=== PATIENT | female | born 1950 | race Caucasian/White ===

== ENCOUNTER → 2016-08-02 | Outpatient (CLI) | payer OTHER | END | disposition home or self-care (01) | LOC: GMAL 11:31 | PROVIDERS: ATTEND Family Medicine | DX: M25.50 Pain in unspecified joint (principal) ==

== ENCOUNTER → 2017-02-22 | Outpatient (CLI) | payer OTHER ==
--- NOTE | 2017-02-22 16:14 | MAM ---
EXAM DESCRIPTION: 3D Screening BILATERAL : Digital Mammography. CLINICAL HISTORY: 66 years Female SCREENING . No complaints. No family history breast cancer. Postmenopausal. Currently on HRT. Prior left breast biopsy.. COMPARISON: 2-D digital screening bilateral study 11/24/2015 and 09/06/2012. Report from prior examination also reviewed. TECHNIQUE: Bilateral CC and MLO projection full-field images, 3-D tomosynthesis digital mammographic technique. Also bilateral synthesized CC/ MLO full-field images. CAD not utilized. FINDINGS: The breast parenchymal density pattern is: Scattered areas of fibroglandular density. No skin thickening or nipple retraction bilateral axillary lymph nodes. Bilateral intramammary lymph nodes. Bilateral solitary microcalcifications. No focal, stellate mass or density, focal asymmetry , and no suspicious microcalcifications bilaterally. Stable mammograms compared to prior study, taking into account differences in mammographic technique IMPRESSION: BI-RADS CATEGORY: 2 - BENIGN FINDINGS. FOLLOW UP: Routine digital bilateral screening, one year interval from February 2017. Written communication explaining the IMPRESSION and follow-up, will be mailed to the patient and referring health care provider. According to the [employer], yearly mammograms are recommended starting at age 40 and continuing as long as a woman is in good health. Any breast change noted on a breast self-exam should be reported promptly to the patient's healthcare provider. Breast MRI is recommended for women with an approximately 20-25% or greater lifetime risk of breast cancer, including women with a strong family history of breast or ovarian cancer and women who have been treated for Hodgkin's disease. A negative mammographic report should not delay tissue diagnosis in patients with significant clinical history or physical findings. Extremely dense breast tissue limits the sensitivity of digital mammography. Electronically signed by: Prem Dhaliwal MD 02/22/2017 4:13 PM [facility]
== END | disposition home or self-care (01) ==
LOC: MAMMO 08:30
PROVIDERS: ATTEND Family Medicine
DX: Z12.31 Encounter for screening mammogram for malignant neoplasm of breast (principal)

== ENCOUNTER → 2017-03-07 | Outpatient (CLI) | payer OTHER | END | disposition home or self-care (01) | LOC: GMAL 10:31 | PROVIDERS: ATTEND Family Medicine | DX: Z00.00 Encounter for general adult medical examination without abnormal findings (principal) ==

== ENCOUNTER → 2018-02-26 | Outpatient (CLI) | payer OTHER ==
--- NOTE | 2018-02-27 16:11 | MAM ---
EXAM DESCRIPTION: 3D Screening BILATERAL : Digital Mammography. CLINICAL HISTORY: 67 years Female SCREEN . No complaints. No personal or family history of breast cancer. Childbirth. Postmenopausal 24 years. Currently on HRT. Benign left breast biopsy. Lifetime risk of developing breast cancer (Tyrer-Cuzick model)(%): 6.2. COMPARISON: Bilateral screening digital breast tomosynthesis 02/22/2017. TECHNIQUE: Bilateral CC and MLO projection full-field images, digital tomosynthesis mammographic technique. Bilateral digital 2-D full-field MLO images. CAD not available for tomosynthesis or 2-D images. FINDINGS: The breast parenchymal density pattern is: Scattered areas of fibroglandular density. No skin thickening or nipple retraction. Bilateral axillary lymph nodes. Bilateral solitary microcalcifications. Stable anterior inferior intramammary lymph node left breast. No new focal, stellate mass or density, focal asymmetry , and no suspicious microcalcifications bilaterally. Stable mammograms compared to prior study. IMPRESSION: Benign exam. BIRAD CATEGORY: 2 BENIGN FINDINGS. RECOMMENDATIONS: FOLLOW UP: Routine digital bilateral mammographic screening, one year interval from February 2017. Written communication explaining the IMPRESSION and follow-up, will be mailed to the patient and referring health care provider. According to the [employer], yearly mammograms are recommended starting at age 40 and continuing as long as a woman is in good health. Any breast change noted on a breast self-exam should be reported promptly to the patient's healthcare provider. Breast MRI is recommended for women with an approximately 20-25% or greater lifetime risk of breast cancer, including women with a strong family history of breast or ovarian cancer and women who have been treated for Hodgkin's disease. A negative mammographic report should not delay tissue diagnosis in patients with significant clinical history or physical findings. Extremely dense breast tissue limits the sensitivity of digital mammography. Electronically signed by: Prem Dhaliwal MD 02/27/2018 4:09 PM CHEMICAL PRODUCTION TECHNICIAN
== END ==
LOC: MAMMO 07:47
PROVIDERS: ATTEND Obstetrics & Gynecology
DX: Z12.31 Encounter for screening mammogram for malignant neoplasm of breast (principal)

== ENCOUNTER → 2018-03-08 | Outpatient (CLI) | payer OTHER | LOC: GMAL 11:23 | PROVIDERS: ATTEND Family Medicine | DX: D51.3 Other dietary vitamin B12 deficiency anemia (principal); R53.83 Other fatigue; E55.9 Vitamin D deficiency, unspecified ==

== ENCOUNTER → 2019-03-12 | Outpatient (CLI) | payer OTHER ==
--- NOTE | 2019-03-15 17:54 | MAM ---
EXAM DESCRIPTION: 3D Screening BILATERAL : Digital Mammography. CLINICAL HISTORY: 68 years Female SCREENING . No complaints. No personal or family history of breast cancer. Menarche age 15. Childbirth age 22. Menopausal age 43. Currently on HRT. Benign left breast biopsy. Lifetime risk of developing breast cancer (Tyrer-Cuzick model)(%): 6.0. COMPARISON: Bilateral screening digital breast tomosynthesis February and February. TECHNIQUE: Bilateral CC and MLO projection full-field images, digital tomosynthesis mammographic technique. Bilateral digital 2-D full-field MLO images. CAD not available for tomosynthesis or 2-D images. FINDINGS: The breast parenchymal density pattern is: Scattered areas of fibroglandular density. No skin thickening or nipple retraction. Bilateral axillary lymph nodes. Bilateral solitary microcalcifications. Mass density, approximately 1 cm diameter in the lower outer quadrant of the middle third of the left breast now with minimally irregular margins and extensions which were not seen the prior study. No new focal, stellate mass or density, focal asymmetry , and no suspicious microcalcifications right breast. IMPRESSION: BI-RADS CATEGORY: 0 - INCOMPLETE- Need additional imaging evaluation. FOLLOW-UP: Recall for additional imaging: Full-field LM 2-D and tomosynthesis images left breast. Spot compression tomosynthesis of the region of interest left breast in the CC projection. Directed left breast ultrasound. Written communication concerning the IMPRESSION and Follow-up, will be mailed to the patient and referring health care provider. Electronically signed by: Prem Dhaliwal MD 03/15/2019 5:53 PM DEBT COLLECTOR
== END ==
LOC: MAMMO 16:00
PROVIDERS: ATTEND Family Medicine
DX: Z12.31 Encounter for screening mammogram for malignant neoplasm of breast (principal)

== ENCOUNTER → 2019-04-17 | Outpatient (CLI) | payer OTHER ==
--- NOTE | 2019-04-17 16:18 | MAM ---
EXAM DESCRIPTION: 3D Diagnostic, Bilateral (accession [id number]), Breast,Left (accession [id number]): Ultrasound CLINICAL HISTORY: 68 yearsFemaleABNORMAL MAMMOGRAM mass density left breast. Lifetime risk of developing breast cancer (Tyrer-Cuzick model)(%): 9.3. COMPARISON: Bilateral screening digital breast tomosynthesis 12 March 2019 and 26 February 2018. TECHNIQUE: Bilateral LM projection full-field images, spot compression medial left breast CC and LM projections: digital tomosynthesis technique. Bilateral 2-D digital full-field images: LM projection. Digital 2-D spot compression, LM, CC, and MLO projections. CAD available for 2-D images.. Transcutaneous scanning of the left breast. utilizing fuentes-scale and Doppler modes. Scanning performed by the bander and Dr. Dhaliwal. FINDINGS: The breast parenchymal density pattern is: Scattered areas of fibroglandular density. No skin thickening or nipple retraction the spot compression tomosynthesis images give improved detail of the lobulated and minimally irregular margins of the mass. Extensions are also noted: Microcalcification in the inferior-lateral margin on the CC spot tomosynthesis image. Ultrasound: Directed ultrasound lower inner quadrant left breast. Emphasis on the 6:00 to 7:00 position, 7 cm from the nipple. A hypoechoic mass is noted with mostly circumscribed but also lobulated and angulated margins. Dimensions are 9.2 x 8.3 mm, almost as tall as wide. Posterior acoustic shadowing. Nonvascular. No distinct cyst or large calcifications. IMPRESSION: 1. BI-RADS Category 4: SUSPICIOUS. Sub-category 4A - Low Suspicion For Malignancy. 2. Surgical consultation and tissue diagnosis is recommended if there are no clinical contraindications. The FINDINGS and FOLLOW-UP plan were reviewed in person with the patient following the examination. Written communication explaining the IMPRESSION and FOLLOW-UP will be mailed to the patient and referring care provider. CRITICAL COMMUNICATION: The critical value was discussed directly by phone by Dr. Dhaliwal, with Dr. Javier Mccoy at approximately 1015 hours, on April 17, 2019. Electronically signed by: Prem Dhaliwal MD 04/17/2019 4:16 PM CUSTOMER TRAINING SPECIALIST
== END ==
LOC: MAMMO 07:56
PROVIDERS: ATTEND Family Medicine
DX: R92.8 Other abnormal and inconclusive findings on diagnostic imaging of breast (principal)

== ENCOUNTER → 2019-05-10 | Outpatient (CLI) | payer MEDICARE, OTHER ==
--- NOTE | 2019-05-13 12:38 | US ---
EXAM DESCRIPTION: Biopsy/Needle Guidance: ULTRASOUND. CLINICAL HISTORY: 68 years Female LT BREAST MASS COMPARISON: Diagnostic digital left breast tomosynthesis and ultrasound 17 April. TECHNIQUE: Procedure performed by referring physician Dr. Carmen during ultrasound-guided needle core biopsy left breast. Transcutaneous scanning: Wyman-scale and Doppler modes. Mass well demonstrated at the 7:00 position of the left breast 7 cm from the nipple. No complicating process is demonstrated. Please refer to physician's procedure note for specific details. Permanent images of this procedure are stored in the patient's medical record. IMPRESSION: Successful ultrasound guided core biopsy left breast mass; procedure performed by Dr. Carmen. Pathology evaluation pending. Electronically signed by: Prem Dhaliwal MD 05/13/2019 12:36 PM COOK RESTAURANT
== END ==
LOC: US 13:34
PROVIDERS: ATTEND Surgery
DX: C50.312 Malignant neoplasm of lower-inner quadrant of left female breast (principal)

== ENCOUNTER → 2019-05-13 | Outpatient (CLI) | payer MEDICARE, OTHER | LOC: GMAL 10:29 | PROVIDERS: ATTEND Family Medicine | DX: E55.9 Vitamin D deficiency, unspecified (principal); I10 Essential (primary) hypertension; Z79.899 Other long term (current) drug therapy ==

== ENCOUNTER 2019-06-14 05:29 | Day surgery (SDC) | payer MEDICARE, OTHER ==
[2019-06-14] MEDS ORDERED: PHENYLEPHRINE INJ 1ML 10 MG/ML VIAL IV ONE (10:00)
[2019-06-14] MEDS ORDERED: fentaNYL CITRATE INJ 50 MCG/ML AMP IV ONE (10:00)
[2019-06-14] MEDS ORDERED: KETOROLAC TROMETHAMINE INJ 30 MG/ML VIAL IV ONE (10:00)
[2019-06-14] MEDS ORDERED: ONDANSETRON INJ 4 MG/2 ML VIAL IV ONE (10:00)
[2019-06-14] MEDS ORDERED: DEXAMETHASONE INJ 10 MG/ML VIAL IV ONE (10:00)
[2019-06-14] MEDS ORDERED: METOCLOPRAMIDE HCL INJ 10 MG/2 ML VIAL IV ONE (10:00)
[2019-06-14] MEDS ORDERED: MIDAZOLAM INJ 2 MG/2 ML VIAL IV ONE (10:00)
[2019-06-14] MEDS ORDERED: raNITIdine HCL INJ 25 MG/ML VIAL IV ONE (10:00)
[2019-06-14] MEDS ORDERED: PROPOFOL 200 MG/20 ML VIAL IV ONE (10:00)
[2019-06-14] MEDS ORDERED: LACTATED RINGERS 1,000 ML IVS ONE (12:10)
[2019-06-14] MEDS ORDERED: MORPHINE SULFATE INJ 10 MG/ML VIAL IV ONE ×3 (14:30→14:50)
--- NOTE | 2019-06-14 15:14 | OP ---
DATE: 06/14/19 PREOPERATIVE DIAGNOSIS: 1. Left breast infiltrating duct carcinoma, 1 cm, ER/NC positive, HER2 negative. POSTOPERATIVE DIAGNOSIS: 1. Left breast infiltrating duct carcinoma, 1 cm, ER/NC positive, HER2 negative. PROCEDURE: 1. Left breast needle localized, wide-local excision with sentinel node biopsy. 2. Injection for sentinel node identification. 3. Deep axillary sentinel node excision. SURGEON: Luan Carmen MD ANESTHESIA: General FINDINGS: A single sentinel node was identified 7,000 radiotracer with no significant background. The wire was placed preoperative, films were examined for wire placement. The lumpectomy was performed nicely with evidence of the tumor in the center of the specimen which was marked with suture, short superior, long lateral and double deep. COMPLICATIONS: None. ESTIMATED BLOOD LOSS: Minimal. PLAN: Discharge. INDICATION: As stated. . PROCEDURE: General anesthesia was induced. She was prepped and draped in sterile fashion. 5 cc of methylene blue dye were injected subareolar and massaged for 5 minutes. We then made an incision utilizing the GPS probe identifying the dominant sentinel node and with the LigaSure taking the node out completely. There was no bleeding, no evidence of background on radiotracer. We then made a radial incision in the inferior portion of the breast over where we believe the tumor to be. We undermined and went to the wire, the thin portion, cut that, followed the thin portion of the wire down to where we knew we were just above the thicker portion which was 1.5 to 2 cm from the tumor itself. We then cored out a moderate sized specimen around it and removed the specimen, marking it short superior, long lateral and double deep, the cavity was examined. There was excellent hemostasis. It was irrigated and then with the specimen on palpation I could not definitely feel the mass but there was no evidence of a positive gross margin. It was sent for x-ray. The wounds were then closed with absorbable suture and dressings were applied. She tolerated the procedure, was awakened and taken to recovery to be discharged. CC: Dr. Javier Mccoy #[id number] [facility]
[2019-06-14] MEDS ORDERED: traMADol HCL 50 MG TAB PO ONE (15:20)
[2019-06-14 16:13] VITALS: BP 123/77; TEMP 98.1; O2SAT 94
--- NOTE | 2019-06-14 16:45 | US ---
EXAM DESCRIPTION: Specimen Study: Ultrasound CLINICAL HISTORY: 68 yearsFemale post excision of biopsy-proven left breast cancer. COMPARISON: Ultrasound guided, needle wire localization of left breast mass today. TECHNIQUE: Ultrasound of left breast biopsy specimen. Specimen is placed between 2 sheets of x-ray film with ultrasound gel overlying the top sheet and overlying the specimen. FINDINGS: The left breast biopsy specimen contains the 9 x 8 mm mass seen on today's procedure images and also seen on images from previous examinations. The distal localizing wire and hook are located in the left breast specimen. IMPRESSION: Successful, ultrasound guided, needle wire localization of mass in the left breast, with localizing wire and hook present in the biopsy specimen. The specimen is pending pathologic examination at remote laboratory Electronically signed by: Prem Dhaliwal MD 06/14/2019 4:43 PM CDT
--- NOTE | 2019-06-16 19:41 | US ---
EXAM DESCRIPTION: Needle Localization (accession [id number]), ultrasound. Breast-Needle Localization Lt (accession [id number]) digital mammography. CLINICAL HISTORY: 68 years Female, LT BREAST MASS COMPARISON: Ultrasound-guided left breast needle core biopsy May 10. Post excision specimen sonography on this visit. Radionuclide sentinel node localization June 12. TECHNIQUE: The procedure was performed by Dr. Dhaliwal; procedure explained to the patient with risks and benefits. The patient gave verbal and written consent. Repeat ultrasound localized the lesion at the 7:00 position left breast, 7 cm from the nipple. Sterile preparation. Sterile ultrasound guidance. 1% Xylocaine 9:1 ratio with sodium bicarbonate for skin and subdermal anesthesia. Skin incision made with # 11 scalpel blade. Medial to lateral approach. Inserted 5 cm Kopans wire needle system to the edge of the lesion, utilizing sterile ultrasound guidance. Wire advanced through the lesion. Needle was removed. Excess wire was clipped. The patient tolerated the procedure well with no immediate complications . Orthogonal digital mammography of the left breast. Patient transferred to surgery in good condition. FINDINGS: Mass measures approximately 9.4 mm, on ultrasound with surrounding tissue predominantly fatty. Multiple images demonstrate the needle and wire localization system within the mass. CC 2-D and MLO tomosynthesis images show the wire entering the skin medial to the mass, traversing the mass and the wire hook is 2 cm lateral to the mass. IMPRESSION: Successful ultrasound guided needle wire localization of left breast mass by radiologist. Position of the localizing wire confirmed by digital mammography. Patient transferred to surgery for open excision of mass. Ultrasound-guided examination of specimen after excision. Electronically signed by: Prem Dhaliwal MD 06/16/2019 7:39 PM CDT
--- NOTE | 2019-06-19 00:54 | NM ---
EXAM DESCRIPTION: Lymphatics Lymph Nodes CLINICAL HISTORY: BREAST NODULE COMPARISON: Ultrasound-guided core needle biopsy left breast positive malignancy May 10. TECHNIQUE: Procedure was performed by Dr. Dhaliwal. Patient supine on scanning table. Skin surrounding left breast nipple cleaned with alcohol. Approximately 50% of the Tc 99M sulfur colloid was injected in 2 equal amounts intradermally at the 3:00 and 9:00 positions of the nipple edge. A total dose of 1.5 mCi of radiopharmaceutical was injected. Standard precautions for handling the radiopharmaceutical were employed. The patient tolerated the procedure with minor discomfort . No images were recorded. IMPRESSION: Successful, periareolar intradermal injection of technetium 99m sulfur colloid radiopharmaceutical by the radiologist for sentinel node localization in surgery suite. Electronically signed by: Prem Dhaliwal MD 06/18/2019 8:25 PM CDT
== END 2019-06-14 16:10 | disposition home or self-care (01) ==
LOC: NM 05:29 → AMB 16:10
PROVIDERS: ATTEND Surgery
DX: D05.12 Intraductal carcinoma in situ of left breast (principal); E78.00 Pure hypercholesterolemia, unspecified; I10 Essential (primary) hypertension; Z90.710 Acquired absence of both cervix and uterus; Z79.899 Other long term (current) drug therapy
CPT/HCPCS: 00400; 19120; 19281; 38525; 78195; 88307; J1100; J1885; J2250; J2270; J2405; J2765; J2780; J3010; J3490; J7120

== ENCOUNTER → 2020-01-24 | Outpatient (CLI) | payer MEDICARE, OTHER ==
--- NOTE | 2020-01-28 08:04 | US ---
EXAM DESCRIPTION: 3D Diagnostic, Bilateral (accession [id number]), Breast,Left (accession [id number]): Ultrasound CLINICAL HISTORY: 69 yearsFemalePERSONAL HISTORY OF BREAST CANCER left breast diagnosed June 2019. No family history of breast cancer. Menarche age 15. Childbirth age 22. Menopause age 43. Previous use of HRT Lifetime risk of developing breast cancer (Tyrer-Cuzick model)(%): Not calculated due to personal history of breast cancer. COMPARISON: Bilateral screening digital breast tomosynthesis March 2019. Bilateral diagnostic digital breast tomosynthesis April 2019. Ultrasound-guided needle core biopsy with positive findings May 2019. Ultrasound-guided wire localization left breast mass with excisional biopsy June 2019. TECHNIQUE: Bilateral LM, CC, and MLO projection full-field images, digital tomosynthesis technique. Bilateral 2-D digital full-field images: LM, CC, and MLO CAD available for 2-D images.. Transcutaneous scanning of the left breast utilizing fuentes-scale and Doppler modes. Scanning performed by the green hide inspector and Dr. Dhaliwal. FINDINGS: The breast parenchymal density pattern is: Scattered areas of fibroglandular density. No skin thickening or nipple retraction axillary nodes. No recurrent mass seen in the surgical site lower inner quadrant middle third left breast. Typical postsurgical and treatment changes. No new calcifications. Solitary microcalcifications bilaterally. No new focal, stellate mass or density, focal asymmetry , and no suspicious microcalcifications bilaterally. Ultrasound: Scanning of the former tumor site and surgical bed lower inner quadrant middle third left breast. Hypoechoic tissue mostly parallel with central fluid collection. Probably a small seroma. Mixed posterior acoustic enhancement and edge shadowing. No large calcifications. No dominant mass or distinct cyst. Nonvascular IMPRESSION: BI-RADS CATEGORY: 3 - PROBABLY BENIGN. RECOMMENDATIONS: FOLLOW-UP: Short interval (6-month) directed left breast ultrasound and optional diagnostic digital breast tomosynthesis left breast. The FINDINGS and the FOLLOW-UP plan were reviewed in person with the patient after the examination. Written communication explaining the IMPRESSION and FOLLOW-UP will be mailed to the patient and referring care provider. Electronically signed by: Prem Dhaliwal MD 01/28/2020 8:02 AM CDT
== END ==
LOC: MAMMO 01-22 08:00
PROVIDERS: ATTEND Nurse Practitioner Family
DX: N64.4 Mastodynia (principal); Z85.3 Personal history of malignant neoplasm of breast; Z98.890 Other specified postprocedural states; R92.8 Other abnormal and inconclusive findings on diagnostic imaging of breast
CPT/HCPCS: 76641; 77066; G0279

== ENCOUNTER → 2020-05-15 | Outpatient (CLI) | payer MEDICARE, OTHER | LOC: GMAL 11:45 | PROVIDERS: ATTEND Family Medicine | DX: D51.3 Other dietary vitamin B12 deficiency anemia (principal); E55.9 Vitamin D deficiency, unspecified; R53.83 Other fatigue; I10 Essential (primary) hypertension; Z83.3 Family history of diabetes mellitus; E78.2 Mixed hyperlipidemia ==